=== PATIENT | female | born 1990 | race Caucasian/White ===

== ENCOUNTER 2018-07-26 07:00 | Day surgery (SDC) | payer OTHER ==
[~2018-07-26] VITALS: Ht 165.1 cm; Wt 104.3 kg
[2018-07-26] MEDS ORDERED: PERCOCET 5-3251 EACH PO (09:55)
== END 2018-07-26 13:00 | disposition home or self-care (01) ==
LOC: CIR.AMB 07:00 → OB/GYN 10:00 → EDSTATUS 10:00 → CIR.AMB 13:00 → O/R 14:40
DX: N83.291 Other ovarian cyst, right side (principal)

== ENCOUNTER 2021-01-12 06:58 | Emergency (ER) | payer OTHER ==
[~2021-01-12] VITALS: Ht 165.1 cm; Wt 103.0 kg
[~2021-01-12 06:58] MED LIST: PERCOCET 5-3251 EACH PO
== END 2021-01-12 15:47 | disposition home or self-care (01) ==
LOC: ER 06:58
DX: N20.1 Calculus of ureter (principal); R10.31 Right lower quadrant pain

== ENCOUNTER 2021-01-18 18:48 | Emergency (ER) | payer OTHER ==
[~2021-01-18] VITALS: Ht 165.1 cm; Wt 102.5 kg
== END 2021-01-19 00:12 | disposition home or self-care (01) ==
LOC: ER 18:48
DX: K59.09 Other constipation (principal)

== ENCOUNTER 2024-07-20 02:39 | Inpatient (IN) | payer OTHER ==
[~2024-07-20] VITALS: Ht 165.1 cm; Wt 1.4 kg
[2024-07-20] VITALS (8 sets, daily range): BP systolic 90–104; BP diastolic 59–68; O2SAT 97–100
[2024-07-20] MEDS ORDERED: PRENATAL TABLE1 EAC1 PO (02:44)
[2024-07-20 12:02] LABS: PH,URINE 6.5 (5.0-8.0); URINE APPEARANCE Clear; URINE BILIRRUBIN Negative (NEGATIVE); URINE BLOOD Negative; URINE COLOR Yellow; URINE GLUCOSE Negative (NEGATIVE); URINE KETONE 15 (NEGATIVE); URINE LEUKOCYTE Negative; URINE NITRATE Negative; URINE PROTEIN Negative (NEGATIVE)
[2024-07-20 12:06] LABS: URINE BACTERIA 177.6 uL (0.0-1933); URINE EPITHELIAL CELLS 6.3 uL (0.0-38.8); URINE RBC 7.1 uL (0.0-20.8); URINE WBC 3.5 uL (0.0-23.2)
[2024-07-20 12:07] LABS: HEMATOCRIT 35.6 % (36.0-45.00); MEAN CORPUSCULAR HEMOGLOBIN 30.9 pg (27.00-32.0); MEAN CORPUSCULAR HGB CONC 33.7 g/dl (32.0-36.0); PLATELET COUNT 194 K/uL (150-450); RED BLOOD COUNT 3.87 M/uL (4.00-6.00); RED CELL DISTRIBUTION WIDTH 14.6 % (11.5-14.5)
[2024-07-20] MEDS ORDERED: RINGERS SOLUTION,LACTATED 1,000 ML IV SCH (18:15)
[2024-07-20] MEDS ORDERED: AMPICILLIN SODIUM 2,000 MG VIAL IV SCH (18:22)
[2024-07-20] MEDS ORDERED: BETAMETHASONE ACETATE,SOD PHOS 30 MG/5 ML ML IM SCH (18:24)
[2024-07-21 03:27] VITALS: BP 95/63
[2024-07-21 06:09] VITALS: BP 99/61; O2SAT 96
[2024-07-21] MEDS ORDERED: PNV,CALCIUM 72/IRON/FOLIC ACID 1 TAB TABLET PO SCH (09:00)
[2024-07-21 11:12] VITALS: BP 90/55
[2024-07-21 15:34] VITALS: BP 96/62
[2024-07-21] MEDS ORDERED: BETAMETHASONE ACETATE,SOD PHOS 30 MG/5 ML ML IM SCH (19:00)
[2024-07-21 19:48] VITALS: BP 111/72; O2SAT 98
[2024-07-21] MEDS ORDERED: ACETAMINOPHEN 500 MG GEL..CAP PO ONE (19:57)
[2024-07-21] MEDS ORDERED: ACETAMINOPHEN 500 MG GEL..CAP PO PRN (20:15)
[2024-07-21 23:30] VITALS: BP 97/63
[2024-07-22] MEDS ORDERED: MAGNESIUM SULFATE IN WATER 100 ML IV SCH (03:45)
[2024-07-22] MEDS ORDERED: MAGNESIUM SULFATE IN WATER 500 ML IV SCH (03:45)
[2024-07-22 03:55] VITALS: BP 97/63
[2024-07-22 06:15] VITALS: BP 99/62; O2SAT 96
[2024-07-22 06:52] LABS: HEMATOCRIT 30.9 % (36.0-45.00); HEMOGLOBIN 10.7 g/dL (12.0-15.00); MEAN CELL VOLUME 90.4 fL (80.00-100.00); MEAN CORPUSCULAR HEMOGLOBIN 31.2 pg (27.00-32.0); MEAN CORPUSCULAR HGB CONC 34.6 g/dl (32.0-36.0); PLATELET COUNT 211 K/uL (150-450); RED BLOOD COUNT 3.41 M/uL (4.00-6.00); RED CELL DISTRIBUTION WIDTH 15.3 % (11.5-14.5)
[2024-07-22 11:24] VITALS: BP 110/76
[2024-07-22 15:45] VITALS: BP 99/63
[2024-07-22] MEDS ORDERED: DOCUSATE SODIUM 100MG CAP PO SCH (17:00)
[2024-07-22 20:15] VITALS: BP 129/74
[2024-07-22 23:25] VITALS: BP 93/62
[2024-07-23 03:29] VITALS: BP 102/66
[2024-07-23 07:18] VITALS: BP 94/62
[2024-07-23 12:21] VITALS: BP 95/63
[2024-07-23 14:00] VITALS: BP 100/68
[2024-07-23 16:30] VITALS: BP 104/69
[2024-07-23 20:30] VITALS: BP 110/75
[2024-07-24] VITALS (7 sets, daily range): BP systolic 90–116; BP diastolic 59–70; O2SAT 99
[2024-07-24] MEDS ORDERED: RINGERS SOLUTION,LACTATED 1,000 ML IV SCH ×2 (01:30→15:00)
[2024-07-24] MEDS ORDERED: MAGNESIUM SULFATE IN WATER 0.04 GM/ML IV.SOLN IV ONE (01:56)
[2024-07-24] MEDS ORDERED: MAGNESIUM SULFATE IN WATER 500 ML IV SCH (02:30)
[2024-07-24] MEDS ORDERED: ERYTHROMYCIN BASE OPHT 1GM EACH TUBE OP ONE (14:00)
[2024-07-24] MEDS ORDERED: METHYLERGONOVINE MALEATE 0.2 MG/ML AMPUL IM ONE (14:00)
[2024-07-24] MEDS ORDERED: OXYTOCIN 10 UNITS/ML VIAL IV ONE (14:00)
[2024-07-24] MEDS ORDERED: MORPHINE SULFATE 4 MG/ML VIAL IV ONE (14:45)
[2024-07-24] MEDS ORDERED: MEPERIDINE HCL/PF 50 MG/ML VIAL IM PRN (15:00)
[2024-07-24] MEDS ORDERED: CHLORHEXIDINE GLUCONATE 120 ML BOTTLE TP NR (15:00)
[2024-07-24] MEDS ORDERED: PROMETHAZINE HCL 25 MG/ML AMPUL IM PRN (15:00)
[2024-07-24] MEDS ORDERED: OXYTOCIN 1,000 ML IV SCH (15:00)
[2024-07-24] MEDS ORDERED: CEFOXITIN SODIUM 2,000 MG VIAL IV SCH (17:00)
[2024-07-24 18:14] LABS: HEMATOCRIT 30.5 % (36.0-45.00); HEMOGLOBIN 10.4 g/dL (12.0-15.00); MEAN CELL VOLUME 91.4 fL (80.00-100.00); MEAN CORPUSCULAR HEMOGLOBIN 31.1 pg (27.00-32.0); PLATELET COUNT 172 K/uL (150-450); RED BLOOD COUNT 3.34 M/uL (4.00-6.00); RED CELL DISTRIBUTION WIDTH 14.9 % (11.5-14.5)
[2024-07-25 04:00] VITALS: BP 92/62
[2024-07-25 08:10] VITALS: BP 104/70
[2024-07-25] MEDS ORDERED: OxyCODONE HCL/APAP UD (PERCOCET) PO PRN (09:00)
[2024-07-25] MEDS ORDERED: IBUprofen 600 MG TABLET PO PRN (12:45)
[2024-07-25 13:45] VITALS: BP 100/66
[2024-07-25 16:00] VITALS: BP 106/72
[2024-07-25 20:00] VITALS: BP 103/67
[2024-07-25 23:42] VITALS: BP 104/69
[2024-07-26 05:00] VITALS: BP 104/71
[2024-07-26 08:03] VITALS: BP 100/62
[2024-07-26 15:54] VITALS: BP 100/67
[2024-07-27 01:24] VITALS: BP 91/61
[2024-07-27] MEDS ORDERED: IBUPROFEN800 MG PO (08:24)
[2024-07-27 10:10] VITALS: BP 95/61; O2SAT 99
== END 2024-07-27 17:16 | disposition home or self-care (01) | DRG 786 ==
LOC: OBS/DEL 02:39 → OB/GYN 18:20 → LDR 18:20 → OB/GYN 07-23 11:47
PROVIDERS: ADMIT Obstetrics & Gynecology; ATTEND Obstetrics & Gynecology
PROC: 4A1HXCZ Monitoring of Products of Conception, Cardiac Rate, External Approach (ICD-10-PCS; 2024-07-20)
PROC: BY4FZZZ Ultrasonography of Third Trimester, Single Fetus (ICD-10-PCS; 2024-07-20)
PROC: BU4CZZZ Ultrasonography of Uterus and Ovaries (ICD-10-PCS; 2024-07-20)
PROC: 10D00Z1 Extraction of Products of Conception, Low, Open Approach (ICD-10-PCS; principal; 2024-07-24 12:00)
DX: O42.013 Preterm premature rupture of membranes, onset of labor within 24 hours of rupture, third trimester (principal); O60.03 Preterm labor without delivery, third trimester; O60.14X0 Preterm labor third trimester with preterm delivery third trimester, not applicable or unspecified; O26.843 Uterine size-date discrepancy, third trimester; O28.3 Abnormal ultrasonic finding on antenatal screening of mother; O34.13 Maternal care for benign tumor of corpus uteri, third trimester; D25.9 Leiomyoma of uterus, unspecified; O36.8130 Decreased fetal movements, third trimester, not applicable or unspecified; Z3A.30 30 weeks gestation of pregnancy; Z37.0 Single live birth

== ENCOUNTER 2024-08-22 14:28 | Outpatient (CLI) | payer OTHER ==
[~2024-08-22 14:28] MED LIST changes: +IBUPROFEN800 MG PO; +PRENATAL TABLE1 EAC1 PO
[2024-08-22 15:32] LABS: HEMOGLOBIN 10.4 g/dL (12.0-15.00); MEAN CELL VOLUME 85.1 fL (80.00-100.00); MEAN CORPUSCULAR HEMOGLOBIN 28.5 pg (27.00-32.0); MEAN CORPUSCULAR HGB CONC 33.5 g/dl (32.0-36.0); PLATELET COUNT 289 K/uL (150-450); RED BLOOD COUNT 3.64 M/uL (4.00-6.00)
[2024-08-22 15:47] LABS: MYCOPLASMA PNEUMONIAE IGM NON REACTIVE (NO REACTIVE)
[2024-08-22 15:59] LABS: ALBUMIN 3.5 gm/dL (3.4-5.0); BILIRUBIN TOTAL 0.32 mg/dL (0.3-1.2); CALCIUM 9.1 mg/dL (8.5-10.1); CREATININE SERUM 0.51 mg/dL (0.55-1.02); GFR 138.04; GLOBULINA 3.6 G/DL (2.4-3.5); POTASSIUM 4.55 mEq/L (3.5-5.1); TOTAL PROTEIN 7.1 gm/dL (6.4-8.2)
== END 2024-08-22 14:29 | disposition home or self-care (01) ==
LOC: LAB 14:28
DX: E55.9 Vitamin D deficiency, unspecified (principal); E11.65 Type 2 diabetes mellitus with hyperglycemia; Z20.820 Contact with and (suspected) exposure to varicella; J20.0 Acute bronchitis due to Mycoplasma pneumoniae; J09.X2 Influenza due to identified novel influenza A virus with other respiratory manifestations